=== PATIENT | female | born 1965 | race Caucasian/White ===

== ENCOUNTER 2020-06-10 08:17 | Day surgery (SDC) | payer OTHER, BC ==
[2020-06-07 12:08] VITALS: BMI 31.2
[2020-06-10] MEDS ORDERED: LIDOCAINE HCL/PF 2% SDV 5ML VIAL ONE (09:06)
[2020-06-10] MEDS ORDERED: PROPOFOL 20 ML ONE ×2 (09:07)
[2020-06-10 09:59] VITALS: TEMP 97.9
[2020-06-10 10:17] VITALS: BP 127/75; PULSE 74
--- NOTE | 2020-06-14 11:41 | PATH ---
Surgical Pathology Report Patient Name: MANI SLOAN [facility]. Rec. #: [id number] /Age/Gender: 1965 (Age: 54) / F Account: [id number] Location: [facility] Taken: 06/10/2020 Received: 06/10/2020 Reported: 06/14/2020 Physicians: Hellen Dodd M.D. Specimen(s) Received RIGHT COLON Clinical History Screening, history of polyps Postoperative diagnosis: Hemorrhoid Final Diagnosis COLON, RIGHT, BIOPSY: MELANOSIS COLI. Electronically Signed Hellen Ortega M.D. Gross Description Received in formalin, labeled "right colon" is a brown, irregular portion of soft tissue measuring 0.4 cm. in greatest dimension. The specimen is submitted in toto in one cassette. 06/13/2020 [facility]06/13/2020
== END 2020-06-10 10:35 | disposition home or self-care (01) ==
LOC: FASU-ENDO 08:17
PROVIDERS: ATTEND Internal Medicine Gastroenterology
PROC: 0DBK8ZX Excision of Ascending Colon, Via Natural or Artificial Opening Endoscopic, Diagnostic (ICD-10-PCS; principal; 2020-06-10 09:26)
DX: Z86.010 Personal history of colon polyps (principal); K64.0 First degree hemorrhoids; K63.89 Other specified diseases of intestine
CPT/HCPCS: 88305-TC

== ENCOUNTER 2021-10-03 09:29 | Day surgery (SDC) | payer OTHER, BC ==
[2021-09-04 15:47] VITALS: BMI 31.8
[2021-10-03 11:21] VITALS: PULSE 75; TEMP 98
[2021-10-03 11:35] VITALS: BP 117/75
== END 2021-10-03 11:40 | disposition home or self-care (01) ==
LOC: FASU-ENDO 09:29
PROVIDERS: ATTEND Internal Medicine Gastroenterology
PROC: 0DBH8ZX Excision of Cecum, Via Natural or Artificial Opening Endoscopic, Diagnostic (ICD-10-PCS; principal; 2021-10-03 10:43)
DX: Z86.010 Personal history of colon polyps (principal); K63.89 Other specified diseases of intestine; K64.0 First degree hemorrhoids
CPT/HCPCS: 88305-TC

== ENCOUNTER 2023-03-05 09:47 | Day surgery (SDC) | payer BC ==
[2023-03-04 16:14] VITALS: BMI 30.2
[2023-03-05 14:24] VITALS: TEMP 98
[2023-03-05 14:28] VITALS: BP 120/65; PULSE 74; RESP 18
== END 2023-03-05 11:15 | disposition home or self-care (01) ==
LOC: FASU-ENDO 09:47
PROVIDERS: ATTEND Internal Medicine Gastroenterology
PROC: 0DB78ZX Excision of Stomach, Pylorus, Via Natural or Artificial Opening Endoscopic, Diagnostic (ICD-10-PCS; 2023-03-05)
PROC: 0DB48ZX Excision of Esophagogastric Junction, Via Natural or Artificial Opening Endoscopic, Diagnostic (ICD-10-PCS; 2023-03-05)
PROC: 0DB98ZX Excision of Duodenum, Via Natural or Artificial Opening Endoscopic, Diagnostic (ICD-10-PCS; principal; 2023-03-05 10:16)
DX: K21.00 Gastro-esophageal reflux disease with esophagitis, without bleeding (principal); K29.50 Unspecified chronic gastritis without bleeding
CPT/HCPCS: 88305-TC; 88342-TC